=== PATIENT | male | born 1980 | race Caucasian/White ===

== ENCOUNTER 2022-07-16 13:32 | Inpatient (IN) | payer OTHER ==
[2022-07-16 14:12] VITALS: BMI 30.7
[2022-07-16] MEDS ORDERED: MAG HYDROX/AL HYDROX/SIMETH 30 ML UNIT-DOSE CUP PO PRN (14:40)
[2022-07-16] MEDS ORDERED: ONDANSETRON *ODT* 4 MG TABLET SL PRN (14:40)
[2022-07-16] MEDS ORDERED: IBUPROFEN 400 MG TABLET (FP) PO PRN (14:40)
[2022-07-16] MEDS ORDERED: LOPERAMIDE HCL 2 MG CAPSULE PO PRN (14:40)
[2022-07-16] MEDS ORDERED: BENZOCAINE/MENTHOL (CHLORASEPTIC ) LOZENGE MM PRN (14:40)
[2022-07-16] MEDS ORDERED: NICOTINE 10 MG CARTRIDGE (INHALER) IH PRN (14:40)
[2022-07-16] MEDS ORDERED: MAGNESIUM CITRATE 300 ML BOTTLE PO PRN (14:40)
[2022-07-16] MEDS ORDERED: MAGNESIUM HYDROX 2400MG/30ML ORAL SUSPENSION 30 ML CUP PO PRN (14:40)
[2022-07-16] MEDS ORDERED: ACETAMINOPHEN 325 MG TABLET (FP) PO PRN ×2 (14:40)
[2022-07-16] MEDS ORDERED: BISMUTH SUBSALICYLATE 524 MG/30 ML PO PRN (14:40)
[2022-07-16] MEDS: PANTOPRAZOLE 40 MG TABLET PO SCH (15:38)
[2022-07-16] MEDS: hydrOXYzine PAMOATE 25 MG CAPSULE (FP) PO SCH ×2 (18:59→22:13)
[2022-07-16] MEDS: METHOCARBAMOL 500 MG TABLET PO PRN (22:13)
[2022-07-16] MEDS: THIAMINE HCL 100 MG TABLET (FP) PO SCH (22:13)
[2022-07-16] MEDS: MELATONIN 5 MG TABLETS PO SCH (22:13)
[2022-07-17] MEDS: hydrOXYzine PAMOATE 25 MG CAPSULE (FP) PO SCH ×3 (06:18→10:39)
[2022-07-17] MEDS: IBUPROFEN 600 MG TABLET (FP) PO PRN (06:52)
[2022-07-17] MEDS: METHOCARBAMOL 500 MG TABLET PO PRN (06:54)
[2022-07-17] MEDS: DICYCLOMINE HCL 10 MG CAPSULE PO PRN (06:54)
[2022-07-17] MEDS: PANTOPRAZOLE 40 MG TABLET PO SCH (10:39)
[2022-07-17] MEDS: PRENATAL VITAMINS W/ FOLIC ACID TABLET (FP) PO SCH (10:39)
[2022-07-17] MEDS: diazePAM 5 MG TABLET PO PRN ×3 (11:42→22:01)
[2022-07-17 11:45] LABS: HEMATOCRIT 40.4 % (35.4-49); HEMOGLOBIN 13.7 GM/dL (11.7-16.9); MCH 29.8 pg (25.7-33.7); MCHC 33.9 g/dl (32.0-35.9); MEAN CELL VOLUME 87.8 fl (80-96); MEAN PLT VOLUME 9.2 fl (7.5-11.1); PLATELET COUNT 179 10^3/uL (134-434); RDW 13.7 % (11.9-15.9); WHITE BLOOD COUNT 6.1 K/mm3 (4.0-10.0)
[2022-07-17] MEDS ORDERED: methaDONE HCL 10 MG TABLET (FOR DETOX USE ONLY) PO ONE (11:45)
[2022-07-17 12:01] LABS: ALBUMIN 3.4 g/dl (3.4-5.0); BLOOD UREA NITROGEN 6.7 mg/dL (7-18); CALCIUM 9.1 mg/dL (8.5-10.1)
[2022-07-17 12:05] LABS: BILIRUBIN,TOTAL 0.7 mg/dL (0.2-1); CREATININE 0.9 mg/dL (0.55-1.3); TOT PROT 6.6 g/dl (6.4-8.2)
[2022-07-17] MEDS: THIAMINE HCL 100 MG TABLET (FP) PO SCH (22:01)
[2022-07-17] MEDS: MELATONIN 5 MG TABLETS PO SCH (22:01)
[2022-07-18] MEDS: METHOCARBAMOL 500 MG TABLET PO PRN (03:03)
[2022-07-18] MEDS: diazePAM 5 MG TABLET PO PRN ×4 (03:04→22:21)
[2022-07-18] MEDS: PRENATAL VITAMINS W/ FOLIC ACID TABLET (FP) PO SCH (10:48)
[2022-07-18] MEDS: PANTOPRAZOLE 40 MG TABLET PO SCH (10:48)
[2022-07-18] MEDS: DICYCLOMINE HCL 10 MG CAPSULE PO PRN (18:53)
[2022-07-18] MEDS: THIAMINE HCL 100 MG TABLET (FP) PO SCH (22:18)
[2022-07-18] MEDS: MELATONIN 5 MG TABLETS PO SCH (22:18)
[2022-07-19] MEDS: METHOCARBAMOL 500 MG TABLET PO PRN ×2 (04:58→22:28)
[2022-07-19] MEDS: diazePAM 5 MG TABLET PO PRN ×3 (04:58→22:29)
[2022-07-19] MEDS: IBUPROFEN 600 MG TABLET (FP) PO PRN (04:58)
[2022-07-19] MEDS ORDERED: methaDONE HCL 10 MG TABLET (FOR DETOX USE ONLY) PO ONE (10:00)
[2022-07-19] MEDS: PRENATAL VITAMINS W/ FOLIC ACID TABLET (FP) PO SCH (10:18)
[2022-07-19] MEDS: PANTOPRAZOLE 40 MG TABLET PO SCH (10:21)
[2022-07-19] MEDS: MELATONIN 5 MG TABLETS PO SCH (22:28)
[2022-07-19] MEDS: THIAMINE HCL 100 MG TABLET (FP) PO SCH (22:28)
[2022-07-20] MEDS: diazePAM 5 MG TABLET PO PRN ×2 (06:25→23:25)
[2022-07-20] MEDS: PRENATAL VITAMINS W/ FOLIC ACID TABLET (FP) PO SCH (10:17)
[2022-07-20] MEDS: PANTOPRAZOLE 40 MG TABLET PO SCH (10:18)
[2022-07-20] MEDS: THIAMINE HCL 100 MG TABLET (FP) PO SCH (22:13)
[2022-07-20] MEDS: MELATONIN 5 MG TABLETS PO SCH (22:13)
[2022-07-20] MEDS: METHOCARBAMOL 500 MG TABLET PO PRN (22:13)
[2022-07-21] MEDS: diazePAM 5 MG TABLET PO PRN ×2 (05:20→22:48)
[2022-07-21 06:52] VITALS: RESP 18
[2022-07-21] MEDS ORDERED: methaDONE HCL 10 MG TABLET (FOR DETOX USE ONLY) PO ONE (10:00)
[2022-07-21] MEDS: PANTOPRAZOLE 40 MG TABLET PO SCH (10:10)
[2022-07-21] MEDS: PRENATAL VITAMINS W/ FOLIC ACID TABLET (FP) PO SCH (10:10)
[2022-07-21] MEDS: MELATONIN 5 MG TABLETS PO SCH (22:48)
[2022-07-21] MEDS: METHOCARBAMOL 500 MG TABLET PO PRN (22:48)
[2022-07-21] MEDS: THIAMINE HCL 100 MG TABLET (FP) PO SCH (22:48)
[2022-07-22] MEDS ORDERED: hydrOXYzine PAMOATE 50 MG CAPSULE (FP) PO ONE (09:00)
[2022-07-22] MEDS ORDERED: hydrOXYzine PAMOATE 25 MG CAPSULE (FP) PO ONE (09:00)
[2022-07-22 09:12] VITALS: BP 146/93; PULSE 80; TEMP 97.7
[2022-07-22] MEDS: METHOCARBAMOL 500 MG TABLET PO PRN (09:27)
[2022-07-22] MEDS: PRENATAL VITAMINS W/ FOLIC ACID TABLET (FP) PO SCH (09:27)
[2022-07-22] MEDS: PANTOPRAZOLE 40 MG TABLET PO SCH (09:27)
== END 2022-07-22 10:03 | disposition home or self-care (01) | DRG 773 ==
LOC: YASAS 13:32 → Y3N 14:43
PROVIDERS: ADMIT Allergy & Immunology; ATTEND Surgery
PROC: HZ2ZZZZ Detoxification Services for Substance Abuse Treatment (ICD-10-PCS; principal; 2022-07-16)
DX: F11.23 Opioid dependence with withdrawal (principal); F14.20 Cocaine dependence, uncomplicated; F17.210 Nicotine dependence, cigarettes, uncomplicated; F41.9 Anxiety disorder, unspecified; I10 Essential (primary) hypertension; K21.9 Gastro-esophageal reflux disease without esophagitis; Z28.310 Unvaccinated for COVID-19
CPT/HCPCS: 36415; 80053; 85027; 86780; C9803-CS; U0003; U0005

== ENCOUNTER 2023-08-19 12:38 | Inpatient (IN) | payer OTHER ==
[2023-08-19 14:26] VITALS: BMI 29.5
[2023-08-19] MEDS ORDERED: MAGNESIUM HYDROX 2400MG/30ML ORAL SUSPENSION 30 ML CUP PO PRN (16:25)
[2023-08-19] MEDS ORDERED: BENZOCAINE/MENTHOL (CHLORASEPTIC ) LOZENGE MM PRN (16:25)
[2023-08-19] MEDS ORDERED: ACETAMINOPHEN 325 MG TABLET (FP) PO PRN (16:25)
[2023-08-19] MEDS ORDERED: DICYCLOMINE HCL 10 MG CAPSULE PO PRN (16:25)
[2023-08-19] MEDS ORDERED: IBUPROFEN 400 MG TABLET (FP) PO PRN (16:25)
[2023-08-19] MEDS ORDERED: BISMUTH SUBSALICYLATE 524 MG/30 ML PO PRN (16:25)
[2023-08-19] MEDS ORDERED: NICOTINE POLACRILEX 2 MG GUM BUC PRN (16:25)
[2023-08-19] MEDS ORDERED: LOPERAMIDE HCL 2 MG CAPSULE PO PRN (16:25)
[2023-08-19] MEDS ORDERED: NALOXONE HCL (KLOXXADO) 8 MG SPRAY NS PRN (16:25)
[2023-08-19] MEDS ORDERED: MAG HYDROX/AL HYDROX/SIMETH 30 ML UNIT-DOSE CUP PO PRN (16:25)
[2023-08-19] MEDS ORDERED: P-EPHED 60MG/TRIPROLIDI 2.5MG TABLET PO PRN (16:25)
[2023-08-19] MEDS ORDERED: ONDANSETRON *ODT* 4 MG TABLET SL PRN (16:25)
[2023-08-19] MEDS ORDERED: hydrOXYzine PAMOATE 25 MG CAPSULE (FP) PO PRN (16:25)
[2023-08-19] MEDS ORDERED: guaiFENesin 600 MG TABLET.ER (FP) PO PRN (16:25)
[2023-08-19] MEDS ORDERED: POLYETHYLENE GLYCOL (HEALTHYLAX) 3350 17 GM PACKET PO PRN (16:25)
[2023-08-19] MEDS ORDERED: BENZONATATE 200 MG CAPSULE PO PRN (16:25)
[2023-08-19] MEDS ORDERED: NALOXONE HCL 0.4 MG/ML VIAL IM PRN (16:25)
[2023-08-19] MEDS ORDERED: cloNIDine HCL 0.1 MG TABLET PO PRN (16:27)
[2023-08-19] MEDS ORDERED: methaDONE HCL 10 MG TABLET (FOR DETOX USE ONLY) PO ONE (18:00)
[2023-08-19] MEDS ORDERED: MELATONIN 5 MG TABLETS PO SCH (22:00)
[2023-08-19] MEDS: METHOCARBAMOL 500 MG TABLET PO PRN (22:15)
[2023-08-19] MEDS: THIAMINE HCL 100 MG TABLET (FP) PO SCH (22:15)
[2023-08-20] MEDS: PRENATAL VITAMINS W/ FOLIC ACID TABLET (FP) PO SCH (09:25)
[2023-08-20] MEDS: METHOCARBAMOL 500 MG TABLET PO PRN ×2 (15:09→22:48)
[2023-08-20] MEDS: THIAMINE HCL 100 MG TABLET (FP) PO SCH (22:48)
[2023-08-20] MEDS: hydrOXYzine PAMOATE 50 MG CAPSULE (FP) PO PRN (22:48)
[2023-08-20] MEDS: MELATONIN 5 MG TABLETS PO SCH (22:48)
[2023-08-21] MEDS: PRENATAL VITAMINS W/ FOLIC ACID TABLET (FP) PO SCH (09:40)
[2023-08-21] MEDS: PANTOPRAZOLE 40 MG TABLET PO SCH (09:41)
[2023-08-21] MEDS: METHOCARBAMOL 500 MG TABLET PO PRN ×2 (09:46→17:25)
[2023-08-21] MEDS ORDERED: methaDONE HCL 10 MG TABLET (FOR DETOX USE ONLY) PO ONE (10:00)
[2023-08-21] MEDS: IBUPROFEN 600 MG TABLET (FP) PO PRN (17:25)
[2023-08-21] MEDS: hydrOXYzine PAMOATE 50 MG CAPSULE (FP) PO PRN (22:41)
[2023-08-21] MEDS: THIAMINE HCL 100 MG TABLET (FP) PO SCH (22:41)
[2023-08-21] MEDS: MELATONIN 5 MG TABLETS PO SCH (22:41)
[2023-08-22] MEDS: PRENATAL VITAMINS W/ FOLIC ACID TABLET (FP) PO SCH (09:16)
[2023-08-22] MEDS: PANTOPRAZOLE 40 MG TABLET PO SCH (09:17)
[2023-08-22] MEDS: hydrOXYzine PAMOATE 50 MG CAPSULE (FP) PO PRN ×2 (09:17→17:42)
[2023-08-22] MEDS: METHOCARBAMOL 500 MG TABLET PO PRN ×2 (09:18→23:59)
[2023-08-22] MEDS: MELATONIN 5 MG TABLETS PO SCH (22:13)
[2023-08-22] MEDS: MIRTAZAPINE 15 MG TABLET (FP) PO SCH (22:13)
[2023-08-22] MEDS: THIAMINE HCL 100 MG TABLET (FP) PO SCH (22:13)
[2023-08-23] MEDS: PRENATAL VITAMINS W/ FOLIC ACID TABLET (FP) PO SCH (09:36)
[2023-08-23] MEDS: PANTOPRAZOLE 40 MG TABLET PO SCH (09:36)
[2023-08-23] MEDS: hydrOXYzine PAMOATE 50 MG CAPSULE (FP) PO PRN ×2 (09:37→17:35)
[2023-08-23] MEDS: METHOCARBAMOL 500 MG TABLET PO PRN ×2 (09:37→17:35)
[2023-08-23] MEDS ORDERED: methaDONE HCL 10 MG TABLET (FOR DETOX USE ONLY) PO ONE (10:00)
[2023-08-23] MEDS: THIAMINE HCL 100 MG TABLET (FP) PO SCH (22:24)
[2023-08-23] MEDS: MIRTAZAPINE 15 MG TABLET (FP) PO SCH (22:24)
[2023-08-23] MEDS: MELATONIN 5 MG TABLETS PO SCH (22:24)
[2023-08-23] MEDS: IBUPROFEN 600 MG TABLET (FP) PO PRN (22:25)
[2023-08-24] MEDS: hydrOXYzine PAMOATE 50 MG CAPSULE (FP) PO PRN (01:01)
[2023-08-24] MEDS: METHOCARBAMOL 500 MG TABLET PO PRN (01:01)
[2023-08-24 09:05] VITALS: BP 106/74; PULSE 93; RESP 18; TEMP 97.1
[2023-08-24] MEDS: PRENATAL VITAMINS W/ FOLIC ACID TABLET (FP) PO SCH (09:09)
[2023-08-24] MEDS: PANTOPRAZOLE 40 MG TABLET PO SCH (09:09)
== END 2023-08-24 11:40 | disposition other institution (70) | DRG 773 ==
LOC: YASAS 12:38 → Y3N 17:01
PROVIDERS: ADMIT Allergy & Immunology; ATTEND Surgery
PROC: HZ2ZZZZ Detoxification Services for Substance Abuse Treatment (ICD-10-PCS; principal; 2023-08-19)
DX: F11.23 Opioid dependence with withdrawal (principal); F14.20 Cocaine dependence, uncomplicated; F19.282 Other psychoactive substance dependence with psychoactive substance-induced sleep disorder; F19.24 Other psychoactive substance dependence with psychoactive substance-induced mood disorder; I10 Essential (primary) hypertension; K21.9 Gastro-esophageal reflux disease without esophagitis; Z28.310 Unvaccinated for COVID-19; Z28.9 Immunization not carried out for unspecified reason
CPT/HCPCS: 87635; 93005; 93010

== ENCOUNTER 2024-08-14 13:57 | Inpatient (IN) | payer OTHER ==
[2024-08-14 14:23] VITALS: BMI 25.7
[2024-08-14] MEDS ORDERED: LOPERAMIDE HCL 2 MG CAPSULE PO PRN (15:43)
[2024-08-14] MEDS ORDERED: POLYETHYLENE GLYCOL (HEALTHYLAX) 3350 17 GM PACKET PO PRN (15:43)
[2024-08-14] MEDS ORDERED: BENZOCAINE/MENTHOL (CHLORASEPTIC ) LOZENGE MM PRN (15:43)
[2024-08-14] MEDS ORDERED: ONDANSETRON *ODT* 4 MG TABLET SL PRN (15:43)
[2024-08-14] MEDS ORDERED: NALOXONE HCL 0.4 MG/ML VIAL IM PRN (15:43)
[2024-08-14] MEDS ORDERED: IBUPROFEN 400 MG TABLET (FP) PO PRN (15:43)
[2024-08-14] MEDS ORDERED: ACETAMINOPHEN 325 MG TABLET (FP) PO PRN (15:43)
[2024-08-14] MEDS ORDERED: guaiFENesin 600 MG TABLET.ER (FP) PO PRN (15:43)
[2024-08-14] MEDS ORDERED: BENZONATATE 200 MG CAPSULE PO PRN (15:43)
[2024-08-14] MEDS ORDERED: IBUPROFEN 600 MG TABLET (FP) PO PRN (15:43)
[2024-08-14] MEDS ORDERED: BISMUTH SUBSALICYLATE 524 MG/30 ML PO PRN (15:43)
[2024-08-14] MEDS ORDERED: MAGNESIUM HYDROX 2400MG/30ML ORAL SUSPENSION 30 ML CUP PO PRN (15:43)
[2024-08-14] MEDS ORDERED: DICYCLOMINE HCL 10 MG CAPSULE PO PRN (15:43)
[2024-08-14] MEDS ORDERED: MAG HYDROX/AL HYDROX/SIMETH 30 ML UNIT-DOSE CUP PO PRN (15:43)
[2024-08-14] MEDS ORDERED: NALOXONE (NARCAN) HCL 4 MG/0.1 ML SPRAY NS PRN (15:43)
[2024-08-14] MEDS ORDERED: methaDONE HCL 10 MG TABLET (FOR DETOX USE ONLY) ONE (16:04)
[2024-08-14] MEDS: methaDONE HCL 10 MG TABLET (FOR DETOX USE ONLY) PO ONE (16:09)
[2024-08-14] MEDS: THIAMINE 100 MG TABLET PO SCH (22:54)
[2024-08-14] MEDS: MELATONIN 5 MG TABLETS PO SCH (22:54)
[2024-08-14] MEDS: METHOCARBAMOL 500 MG TABLET PO PRN (22:55)
[2024-08-15] MEDS: PRENATAL VITAMINS W/ FOLIC ACID TABLET (FP) PO SCH (09:25)
[2024-08-15] MEDS: hydrOXYzine PAMOATE 25 MG CAPSULE (FP) PO PRN (09:25)
[2024-08-15 11:05] LABS: HEMATOCRIT 38.7 % (35.4-49); HEMOGLOBIN 13.3 GM/dL (11.7-16.9); MCHC 34.4 g/dl (32.0-35.9); MEAN CELL VOLUME 90.1 fl (80-96); MEAN PLT VOLUME 8.2 fl (7.5-11.1); PLATELET COUNT 225 10^3/uL (134-434); RBC 4.29 M/mm3 (4.00-5.60); WHITE BLOOD COUNT 4.6 K/mm3 (4.0-10.0)
[2024-08-15 11:07] LABS: POTASSIUM 3.5 mmol/L (3.5-5.1)
[2024-08-15 11:10] LABS: ALBUMIN 2.9 g/dl (3.4-5.0); CALCIUM 8.5 mg/dL (8.5-10.1)
[2024-08-15 11:11] LABS: BLOOD UREA NITROGEN 6.2 mg/dL (7-18)
[2024-08-15 11:13] LABS: CREATININE 0.8 mg/dL (0.55-1.3)
[2024-08-15 11:15] LABS: BILIRUBIN,TOTAL 0.8 mg/dL (0.2-1); TOT PROT 5.8 g/dl (6.4-8.2)
[2024-08-15] MEDS: FAMOTIDINE 20 MG TABLET PO SCH (16:46)
[2024-08-15] MEDS: cloNIDine HCL 0.1 MG TABLET PO PRN (17:46)
[2024-08-16] MEDS: methaDONE HCL 10 MG TABLET (FOR DETOX USE ONLY) PO ONE (10:46)
[2024-08-18] MEDS: methaDONE HCL 10 MG TABLET (FOR DETOX USE ONLY) PO ONE (09:32)
[2024-08-19 09:20] VITALS: BP 123/69; PULSE 65; RESP 18; TEMP 97.8
== END 2024-08-19 09:45 | disposition home or self-care (01) | DRG 773 ==
LOC: YASAS 13:57 → Y6N 16:41
PROVIDERS: ADMIT Allergy & Immunology; ATTEND Physician Assistant Medical
PROC: HZ2ZZZZ Detoxification Services for Substance Abuse Treatment (ICD-10-PCS; principal; 2024-08-14)
DX: F11.23 Opioid dependence with withdrawal (principal); F14.20 Cocaine dependence, uncomplicated; F12.20 Cannabis dependence, uncomplicated; F32.A Depression, unspecified; K21.9 Gastro-esophageal reflux disease without esophagitis; Z59.00 Homelessness unspecified
CPT/HCPCS: 36415; 80053; 80305; 85027; 86780; 93005; 93010

== ENCOUNTER 2024-09-30 11:42 | Inpatient (IN) | payer OTHER ==
[2024-09-30 12:49] VITALS: BMI 25.1
[2024-09-30] MEDS ORDERED: BENZOCAINE/MENTHOL (CHLORASEPTIC ) LOZENGE MM PRN (13:59)
[2024-09-30] MEDS ORDERED: BENZONATATE 200 MG CAPSULE PO PRN (13:59)
[2024-09-30] MEDS ORDERED: LOPERAMIDE HCL 2 MG CAPSULE PO PRN (13:59)
[2024-09-30] MEDS ORDERED: ACETAMINOPHEN 325 MG TABLET (FP) PO PRN (13:59)
[2024-09-30] MEDS ORDERED: ONDANSETRON *ODT* 4 MG TABLET SL PRN (13:59)
[2024-09-30] MEDS ORDERED: BISMUTH SUBSALICYLATE 262 MG/15 ML BTL PO PRN (13:59)
[2024-09-30] MEDS ORDERED: IBUPROFEN 400 MG TABLET (FP) PO PRN (13:59)
[2024-09-30] MEDS ORDERED: POLYETHYLENE GLYCOL (HEALTHYLAX) 3350 17 GM PACKET PO PRN (13:59)
[2024-09-30] MEDS ORDERED: guaiFENesin 600 MG TABLET.ER (FP) PO PRN (13:59)
[2024-09-30] MEDS ORDERED: NALOXONE (NARCAN) HCL 4 MG/0.1 ML SPRAY NS PRN (13:59)
[2024-09-30] MEDS ORDERED: IBUPROFEN 600 MG TABLET (FP) PO PRN (13:59)
[2024-09-30] MEDS ORDERED: MAGNESIUM HYDROX 2400MG/30ML ORAL SUSPENSION 30 ML CUP PO PRN (13:59)
[2024-09-30] MEDS ORDERED: DICYCLOMINE HCL 10 MG CAPSULE PO PRN (13:59)
[2024-09-30] MEDS ORDERED: PRENATAL VITAMINS W/ FOLIC ACID TABLET (FP) PO ONE (15:24)
[2024-09-30] MEDS ORDERED: methaDONE HCL 10 MG TABLET (FOR DETOX USE ONLY) ONE (15:24)
[2024-09-30] MEDS: methaDONE HCL 10 MG TABLET (FOR DETOX USE ONLY) PO ONE (15:31)
[2024-09-30] MEDS: PRENATAL VITAMINS W/ FOLIC ACID TABLET (FP) PO SCH (15:31)
[2024-09-30] MEDS: hydrOXYzine PAMOATE 25 MG CAPSULE (FP) PO PRN (16:04)
[2024-09-30] MEDS: cloNIDine HCL 0.1 MG TABLET PO PRN (22:15)
[2024-09-30] MEDS: THIAMINE 100 MG TABLET PO SCH (22:15)
[2024-09-30] MEDS: METHOCARBAMOL 500 MG TABLET PO PRN (22:15)
[2024-09-30] MEDS: MELATONIN 5 MG TABLETS PO SCH (22:15)
[2024-10-01 11:56] LABS: HEMATOCRIT 40.9 % (35.4-49); HEMOGLOBIN 13.6 GM/dL (11.7-16.9); MCH 29.9 pg (25.7-33.7); MCHC 33.3 g/dl (32.0-35.9); MEAN CELL VOLUME 89.9 fl (80-96); MEAN PLT VOLUME 8.9 fl (7.5-11.1); PLATELET COUNT 253 10^3/uL (134-434); RBC 4.55 M/mm3 (4.00-5.60); RDW 12.7 % (11.9-15.9); WHITE BLOOD COUNT 12.7 K/mm3 (4.0-10.0)
[2024-10-01 12:04] LABS: POTASSIUM 4.4 mmol/L (3.5-5.1)
[2024-10-01 12:12] LABS: ALBUMIN 3.5 g/dl (3.4-5.0); CALCIUM 9.4 mg/dL (8.5-10.1)
[2024-10-01 12:16] LABS: CREATININE 0.8 mg/dL (0.55-1.3)
[2024-10-01 12:17] LABS: BILIRUBIN,TOTAL 0.5 mg/dL (0.2-1); TOT PROT 6.6 g/dl (6.4-8.2)
[2024-10-01 13:02] LABS: HIV INTERPRETATION NEGATIVE (NEGATIVE)
[2024-10-01] MEDS: PANTOPRAZOLE 40 MG TABLET PO SCH (13:30)
[2024-10-01] MEDS: MIRTAZAPINE 15 MG TABLET (FP) PO SCH (22:35)
[2024-10-02] MEDS: methaDONE HCL 10 MG TABLET (FOR DETOX USE ONLY) PO ONE (10:37)
[2024-10-03] MEDS: MAG HYDROX/AL HYDROX/SIMETH 30 ML UNIT-DOSE CUP PO PRN (11:36)
[2024-10-04] MEDS: methaDONE HCL 10 MG TABLET (FOR DETOX USE ONLY) PO ONE (10:36)
[2024-10-04] MEDS: NALOXONE (NYS OPIOID OVERDOSE PROGRAM) 4 MG/0.1 ML SPRAY NS SCH (10:37)
[2024-10-04 12:46] LABS: HEMATOCRIT 40.2 % (35.4-49); HEMOGLOBIN 13.7 GM/dL (11.7-16.9); MCH 30.4 pg (25.7-33.7); MCHC 34.2 g/dl (32.0-35.9); MEAN CELL VOLUME 88.9 fl (80-96); MEAN PLT VOLUME 8.5 fl (7.5-11.1); PLATELET COUNT 235 10^3/uL (134-434); RBC 4.52 M/mm3 (4.00-5.60); RDW 12.5 % (11.9-15.9); WHITE BLOOD COUNT 11.3 K/mm3 (4.0-10.0)
[2024-10-06 09:29] VITALS: RESP 16
[2024-10-06 12:57] VITALS: BP 138/98; PULSE 99; TEMP 98
== END 2024-10-06 13:37 | disposition home or self-care (01) | DRG 773 ==
LOC: YASAS 11:42 → Y3N 15:26
PROVIDERS: ADMIT Allergy & Immunology; ATTEND Surgery
PROC: HZ2ZZZZ Detoxification Services for Substance Abuse Treatment (ICD-10-PCS; principal; 2024-10-01)
DX: F11.23 Opioid dependence with withdrawal (principal); F14.20 Cocaine dependence, uncomplicated; F12.20 Cannabis dependence, uncomplicated; F17.210 Nicotine dependence, cigarettes, uncomplicated; F19.24 Other psychoactive substance dependence with psychoactive substance-induced mood disorder; G47.00 Insomnia, unspecified; I10 Essential (primary) hypertension; K21.9 Gastro-esophageal reflux disease without esophagitis
CPT/HCPCS: 36415; 80053; 80305; 80307; 85027; 86780; 87389; 93005; 93010

== ENCOUNTER 2025-01-03 12:13 | Inpatient (IN) | payer OTHER ==
[2025-01-03 13:39] VITALS: BMI 24.5
[2025-01-03] MEDS ORDERED: ONDANSETRON *ODT* 4 MG TABLET SL PRN (15:33)
[2025-01-03] MEDS ORDERED: BENZONATATE 200 MG CAPSULE PO PRN (15:33)
[2025-01-03] MEDS ORDERED: POLYETHYLENE GLYCOL (HEALTHYLAX) 3350 17 GM PACKET PO PRN (15:33)
[2025-01-03] MEDS ORDERED: LOPERAMIDE HCL 2 MG CAPSULE PO PRN (15:33)
[2025-01-03] MEDS ORDERED: ACETAMINOPHEN 325 MG TABLET (FP) PO PRN (15:33)
[2025-01-03] MEDS ORDERED: DICYCLOMINE HCL 10 MG CAPSULE PO PRN (15:33)
[2025-01-03] MEDS ORDERED: NALOXONE (NARCAN) HCL 4 MG/0.1 ML SPRAY NS PRN (15:33)
[2025-01-03] MEDS ORDERED: BENZOCAINE/MENTHOL (CHLORASEPTIC ) LOZENGE MM PRN (15:33)
[2025-01-03] MEDS ORDERED: MAGNESIUM HYDROX 2400MG/30ML ORAL SUSPENSION 30 ML CUP PO PRN (15:33)
[2025-01-03] MEDS ORDERED: MAG HYDROX/AL HYDROX/SIMETH 30 ML UNIT-DOSE CUP PO PRN (15:33)
[2025-01-03] MEDS ORDERED: BISMUTH SUBSALICYLATE 262 MG/15 ML BTL PO PRN (15:33)
[2025-01-03] MEDS ORDERED: IBUPROFEN 400 MG TABLET (FP) PO PRN (15:33)
[2025-01-03] MEDS ORDERED: guaiFENesin 600 MG TABLET.ER (FP) PO PRN (15:33)
[2025-01-03] MEDS: PERMETHRIN (NIX CREAM SCALP RINSE) 59 ML 1% BOTTLE TP ONE (15:38)
[2025-01-03] MEDS ORDERED: methaDONE HCL 10 MG TABLET (FOR DETOX USE ONLY) ONE (15:45)
[2025-01-03] MEDS: methaDONE HCL 10 MG TABLET PO ONE (15:46)
[2025-01-03] MEDS: cloNIDine HCL 0.1 MG TABLET PO SCH (17:27)
[2025-01-03] MEDS ORDERED: methaDONE HCL 10 MG TABLET PO PRN (17:34)
[2025-01-03] MEDS: METHOCARBAMOL 500 MG TABLET PO PRN (22:11)
[2025-01-03] MEDS: MELATONIN 5 MG TABLETS PO SCH (22:11)
[2025-01-03] MEDS: THIAMINE 100 MG TABLET PO SCH (22:11)
[2025-01-04] MEDS: PRENATAL VITAMINS W/ FOLIC ACID TABLET (FP) PO SCH (10:17)
[2025-01-04] MEDS: methaDONE 40 MG, methaDONE 10 MG PO ONE (10:17)
[2025-01-04] MEDS: PANTOPRAZOLE 40 MG TABLET PO SCH (16:20)
[2025-01-05] MEDS: cloNIDine HCL 0.1 MG TABLET PO PRN (06:02)
[2025-01-05] MEDS: methaDONE 40 MG, methaDONE 20 MG PO ONE (10:17)
[2025-01-05] MEDS: hydrOXYzine PAMOATE 25 MG CAPSULE (FP) PO PRN (22:19)
[2025-01-05] MEDS: IBUPROFEN 600 MG TABLET (FP) PO PRN (22:19)
[2025-01-06] MEDS: methaDONE 40 MG, methaDONE 30 MG PO ONE (10:48)
[2025-01-06] MEDS: AMMONIUM LACTATE 12% LOTION 225 GM BOTTLE TP PRN (16:36)
[2025-01-06] MEDS: MINERAL OIL/PETROLAT/WATER TOPICAL CREAM 113 GM JAR TP ONE (17:41)
[2025-01-06] MEDS: MINERAL OIL/PETROLAT/WATER TOPICAL CREAM 113 GM JAR TP SCH (17:59)
[2025-01-06] MEDS: VITAMINS A AND D TOPICAL OINTMENT TP SCH (19:19)
[2025-01-06] MEDS: diphenhydrAMINE HCL 25 MG CAPSULE (FP) PO ONE (19:23)
[2025-01-06] MEDS: CLOTRIMAZOLE 1% CREAM TP SCH (21:15)
[2025-01-07 08:39] VITALS: BP 142/87; PULSE 86; RESP 18; TEMP 98.1
[2025-01-07] MEDS ORDERED: methaDONE HCL 40 MG DISPERSABLE TABLET PO ONE (10:00)
[2025-01-07] MEDS: diphenhydrAMINE HCL 25 MG CAPSULE (FP) PO SCH (10:40)
[2025-01-08] MEDS ORDERED: methaDONE 80 MG, methaDONE 10 MG PO ONE (10:00)
== END 2025-01-07 09:01 | disposition home or self-care (01) | DRG 773 ==
LOC: YASAS 12:13 → Y3N 16:27
PROVIDERS: ADMIT Allergy & Immunology; ATTEND Allergy & Immunology
PROC: HZ2ZZZZ Detoxification Services for Substance Abuse Treatment (ICD-10-PCS; principal; 2025-01-03)
DX: F11.23 Opioid dependence with withdrawal (principal); F14.20 Cocaine dependence, uncomplicated; F17.210 Nicotine dependence, cigarettes, uncomplicated; F41.9 Anxiety disorder, unspecified; I10 Essential (primary) hypertension; K21.9 Gastro-esophageal reflux disease without esophagitis; L29.89 Other pruritus; B88.9 Infestation, unspecified
CPT/HCPCS: 80305; 80307; 93005; 93010

== ENCOUNTER 2025-01-07 13:25 | Inpatient (IN) | payer OTHER ==
[2025-01-07 14:20] VITALS: BMI 25.2
[2025-01-07] MEDS ORDERED: BENZONATATE 200 MG CAPSULE PO PRN (14:25)
[2025-01-07] MEDS ORDERED: MAGNESIUM HYDROX 2400MG/30ML ORAL SUSPENSION 30 ML CUP PO PRN (14:25)
[2025-01-07] MEDS ORDERED: POLYETHYLENE GLYCOL (HEALTHYLAX) 3350 17 GM PACKET PO PRN (14:25)
[2025-01-07] MEDS ORDERED: NALOXONE HCL 0.4 MG/ML VIAL IVPUSH PRN (14:25)
[2025-01-07] MEDS ORDERED: NALOXONE (NARCAN) HCL 4 MG/0.1 ML SPRAY NS PRN (14:25)
[2025-01-07] MEDS ORDERED: BENZOCAINE/MENTHOL (CHLORASEPTIC ) LOZENGE MM PRN (14:25)
[2025-01-07] MEDS ORDERED: LOPERAMIDE HCL 2 MG CAPSULE PO PRN (14:25)
[2025-01-07] MEDS ORDERED: guaiFENesin 600 MG TABLET.ER (FP) PO PRN (14:25)
[2025-01-07] MEDS ORDERED: ACETAMINOPHEN 325 MG TABLET (FP) PO PRN (14:25)
[2025-01-07] MEDS: THIAMINE 100 MG TABLET PO SCH (21:47)
[2025-01-07] MEDS: MELATONIN 5 MG TABLETS PO SCH (21:47)
[2025-01-07] MEDS: METHOCARBAMOL 500 MG TABLET PO PRN (21:50)
[2025-01-08] MEDS: PRENATAL VITAMINS W/ FOLIC ACID TABLET (FP) PO SCH (10:08)
[2025-01-08] MEDS: PANTOPRAZOLE 40 MG TABLET PO SCH (10:08)
[2025-01-08] MEDS: methaDONE HCL 40 MG DISPERSABLE TABLET PO SCH ×2 (10:09→10:42)
[2025-01-08] MEDS: VITAMINS A AND D TOPICAL OINTMENT TP SCH (14:31)
[2025-01-08] MEDS: AMMONIUM LACTATE 12% LOTION 225 GM BOTTLE TP PRN (14:31)
[2025-01-08] MEDS: CLOTRIMAZOLE 1% CREAM TP PRN (14:31)
[2025-01-08] MEDS: MIRTAZAPINE 15 MG TABLET (FP) PO SCH (21:07)
[2025-01-10] MEDS: CLINDAMYCIN PHOSPHATE 1% TOPICAL GEL 30 GM TUBE TP SCH (21:28)
[2025-01-11 11:36] LABS: BASO % 0.2 % (0-2.0); EOS % 0.7 % (0-4.5); HEMATOCRIT 40.6 % (35.4-49); HEMOGLOBIN 13.4 GM/dL (11.7-16.9); LYMPH % 23.3 % (8-40); MCH 30.4 pg (25.7-33.7); MCHC 32.9 g/dl (32.0-35.9); MEAN CELL VOLUME 92.5 fl (80-96); MEAN PLT VOLUME 9.4 fl (7.5-11.1); MONO % 13.4 % (3.8-10.2); NEUT % 62.4 % (42.8-82.8); PLATELET COUNT 187 10^3/uL (134-434); RBC 4.39 M/mm3 (4.00-5.60); RDW 13.4 % (11.9-15.9); WHITE BLOOD COUNT 8.7 K/mm3 (4.0-10.0)
[2025-01-11 12:09] LABS: POTASSIUM 4.2 mmol/L (3.5-5.1)
[2025-01-11 12:12] LABS: CALCIUM 8.8 mg/dL (8.5-10.1)
[2025-01-11 12:13] LABS: ALBUMIN 3.7 g/dl (3.4-5.0); BLOOD UREA NITROGEN 18.8 mg/dL (7-18)
[2025-01-11 12:16] LABS: CREATININE 0.9 mg/dL (0.55-1.3)
[2025-01-11 12:17] LABS: BILIRUBIN,TOTAL 0.6 mg/dL (0.2-1); TOT PROT 6.8 g/dl (6.4-8.2)
[2025-01-13] MEDS: hydrOXYzine PAMOATE 25 MG CAPSULE (FP) PO PRN (21:23)
[2025-01-13] MEDS: IBUPROFEN 400 MG TABLET (FP) PO PRN (21:24)
[2025-01-14] MEDS ORDERED: hydrOXYzine PAMOATE 50 MG CAPSULE (FP) PO PRN (14:05)
[2025-01-14] MEDS: QUEtiapine FUMARATE 50 MG TABLET PO SCH (21:05)
[2025-01-15] MEDS: methaDONE HCL 40 MG DISPERSABLE TABLET PO SCH (05:53)
[2025-01-15] MEDS: QUEtiapine FUMARATE 25 MG TABLET PO SCH (09:56)
[2025-01-17] MEDS: METHOCARBAMOL 500 MG TABLET PO PRN (22:01)
[2025-01-20] MEDS: IBUPROFEN 600 MG TABLET (FP) PO PRN (13:36)
[2025-01-21 05:56] VITALS: RESP 16
[2025-01-24] MEDS: MAG HYDROX/AL HYDROX/SIMETH 30 ML UNIT-DOSE CUP PO PRN (17:11)
[2025-01-25 05:32] VITALS: BP 112/78; PULSE 77; TEMP 97.3
== END 2025-01-25 09:51 | disposition left against medical advice (07) | DRG 772 ==
LOC: YASAS 13:25 → Y3W 16:18
PROVIDERS: ADMIT Psychiatry & Neurology Pain Medicine; ATTEND Psychiatry & Neurology Pain Medicine
PROC: HZ42ZZZ Group Counseling for Substance Abuse Treatment, Cognitive-Behavioral (ICD-10-PCS; principal; 2025-01-07)
DX: F11.20 Opioid dependence, uncomplicated (principal); F14.20 Cocaine dependence, uncomplicated; F19.282 Other psychoactive substance dependence with psychoactive substance-induced sleep disorder; F19.24 Other psychoactive substance dependence with psychoactive substance-induced mood disorder; F41.9 Anxiety disorder, unspecified; F42.4 Excoriation (skin-picking) disorder; I10 Essential (primary) hypertension; K21.9 Gastro-esophageal reflux disease without esophagitis; F91.8 Other conduct disorders; Z91.199 Patient's noncompliance with other medical treatment and regimen due to unspecified reason
CPT/HCPCS: 36415; 80053; 80305; 82652; 82962; 83735; 85025; 86780; 87811